=== PATIENT | male | born 1965 | race Asian ===

== ENCOUNTER 2016-08-23 11:41 | Emergency (ER) | payer OTHER ==
[2016-08-23 11:46] VITALS: BP 105/62; PULSE 87; TEMP 98.1; BMI 22.0
[2016-08-23] MEDS ORDERED: IBUPROFEN 600 MG TABLET (FP) PO ONE ×2 (12:10→12:16)
--- NOTE | 2016-08-23 13:21 | PDOC ---
History of Present Illness - General Chief Complaint: Sore Throat Stated Complaint: FEVER Time Seen by Provider: 08/23/16 11:52 History Source: Patient Exam Limitations: No Limitations - History of Present Illness Initial Comments: 08/23/16 13:19 CHIEF COMPLAINT: HISTORY OF PRESENT ILLNESS: REVIEW OF SYSTEMS: GENERAL/CONSTITUTIONAL: No fever or chills. No weakness. No weight change. HEAD, EYES, EARS, NOSE AND THROAT: No change in vision. No ear pain or discharge. No sore throat. CARDIOVASCULAR: No chest pain or palpitations. RESPIRATORY: No cough, wheezing, or shortness of breath. GASTROINTESTINAL: No nausea, vomiting, diarrhea or constipation. GENITOURINARY: No dysuria, frequency, or change in urination. MUSCULOSKELETAL: No joint or muscle swelling or pain. No neck or back pain. SKIN: No rash or easy bruising. NEUROLOGIC: No headache, vertigo, loss of consciousness, or loss of sensation. PSYCHIATRIC: No depression or anxiety. ENDOCRINE: No increased thirst. No abnormal weight change. HEMATOLOGIC/LYMPHATIC: No anemia, easy bleeding, or history of blood clots. ALLERGIC/IMMUNOLOGIC: No hives or skin allergy. No latex allergy. PHYSICAL EXAM: GENERAL: The patient is awake, alert, and fully oriented, in no acute distress. HEAD: Normal with no signs of trauma. ENT: Pupils equal, round and reactive to light, extraocular movements intact, sclera anicteric, conjunctiva clear. Neck supple. LUNGS: Clear to auscultation bilaterally. Normal excursion. No respiratory distress or use of accessory muscles. CV: RRR, S1/S2, no MRG. Cap refill < 2 sec. ABDOMEN: Soft, non-distended, non-tender. EXTREMITIES: Normal range of motion, no edema. NEUROLOGICAL: Normal speech, normal gait. CN II-XII grossly intact. PSYCH: Normal mood, normal affect. SKIN: Warm, dry, normal turgor, no rashes or lesions noted. Past History - Past Medical History Allergies/Adverse Reactions: Allergies Allergy/AdvReac Type Severity Reaction Status Date / Time Penicillins Allergy Verified 08/23/16 11:43 Home Medications: Ambulatory Orders NK [No Known Home Medication] 08/23/16 Asthma: Yes Hypercholesterolemia: Yes - Surgical History Abdominal Surgery: Yes (hernia,rectum fistula) - Psycho/Social/Smoking Cessation Hx Anxiety: No Suicidal Ideation: No Smoking History: Never smoked Have you smoked in the past 12 months: No Information on smoking cessation initiated: No Hx Alcohol Use: No Drug/Substance Use Hx: No *Physical Exam - Vital Signs Last Vital Signs Temp Pulse Resp BP Pulse Ox 98.1 F 87 18 105/62 100 08/23/16 11:43 08/23/16 11:43 08/23/16 11:43 08/23/16 11:43 08/23/16 11:43 ED Treatment Course - ADDITIONAL ORDERS Additional order review: 08/23/16 12:10 Group A Strep Rapid Antigen - Final Throat - RADIOLOGY Radiology Studies Ordered: Category Date Time Status CHEST PA & LAT [RAD] Stat Radiology 08/23/16 12:10 Completed - Medications Given in the ED: ED Medications Discontinued Medications Generic Name Dose Route Start Last Admin Trade Name Freq PRN Reason Stop Dose Admin Ibuprofen 600 mg 08/23/16 12:10 08/23/16 12:19 Motrin - PO 08/23/16 12:11 600 mg ONCE ONE Administration Medical Decision Making - Medical Decision Making 08/23/16 13:20 A/P: *DC/Admit/Observation/Transfer Diagnosis at time of Disposition: Pharyngitis Qualifiers: Pharyngitis/tonsillitis etiology: unspecified etiology Qualified Code(s): J02.9 - Acute pharyngitis, unspecified - Discharge Dispostion Disposition: HOME Condition at time of disposition: Stable Admit: No - Referrals Referrals: Kirstin Núñez MD [Primary Care Provider] - Call tomorrow - Patient Instructions Printed Discharge Instructions: DI for Pharyngitis/Tonsillopharyngitis -- Adult Additional Instructions: -Rest and stay well-hydrated -Take ibuprofen and azithromycin as prescribed -Follow up with Dr. Núñez this week -Return here for persistent fevers or any other concerning symptoms - Post Discharge Activity Work/School Note: Back to Work
== END 2016-08-23 13:32 | disposition home or self-care (01) ==
LOC: JERFT 11:41
DX: J02.9 Acute pharyngitis, unspecified (principal)
CPT/HCPCS: 71020-TC; 87070; 87430; 99281-25

== ENCOUNTER 2017-01-21 01:29 | Emergency (ER) | payer OTHER ==
[2017-01-21] MEDS ORDERED: MECLIZINE HCL 25 MG TABLET (FP) PO STA (01:36)
--- NOTE | 2017-01-21 01:37 | PDOC ---
History of Present Illness - General History Source: Patient <Bryan Hawkins - Last Filed: 01/21/17 02:23> - General Exam Limitations: No Limitations - History of Present Illness Initial Comments: 01/21/17 02:33 Patient is a 51 year old male with a significant past medical history of HTN, who presents to the ED with complaints of sore throat that began 2 days ago. Patient reports sore throat began in the morning suddenly 2 days ago. He reports experiencing intermittent non productive cough secondary to sore throat. Patient states the only sick contact is his father, but states he has abdominal pain, not a sore throat. Denies chest pain, SOB. Denies nausea, vomiting. Denies fevers, chills. Denies any out of state travel. Denies any other symptoms. Allergies: Penicillins Social history: No smoking. No alcohol. No illicit drugs. Surgical history: hernia,rectal fistula PMD: Dr. Kirstin Núñez <Luis Eduardo Fragoso - Last Filed: 01/21/17 02:33> - General Stated Complaint: SORE THROAT Time Seen by Provider: 01/21/17 01:33 Past History - Past Medical History Asthma: Yes Hypercholesterolemia: Yes - Surgical History Abdominal Surgery: Yes (hernia,rectum fistula) - Suicide/Smoking/Psychosocial Hx Smoking History: Never smoked Have you smoked in the past 12 months: No Hx Alcohol Use: No Drug/Substance Use Hx: No <Tawana Hawkinsan - Last Filed: 01/21/17 02:23> <Luis Eduardo Fragoso - Last Filed: 01/21/17 02:33> - Past Medical History Allergies/Adverse Reactions: Allergies Allergy/AdvReac Type Severity Reaction Status Date / Time Penicillins Allergy Verified 08/23/16 11:43 Home Medications: Ambulatory Orders Azithromycin [Zithromax Tri-Garret (3 DAYS) -] 500 mg PO DAILY #3 tablet 08/23/16 Ibuprofen [Motrin -] 600 mg PO QID #15 tablet 01/21/17 Meclizine HCl 25 mg PO TID #30 tablet 01/21/17 Review of Systems - Review of Systems Able to Perform ROS?: Yes Comments:: 01/21/17 02:33 CONSTITUTIONAL: Absent: fever, no chills, no fatigue EYES: Absent: visual changes ENT: +Sore throat. Absent: ear pain, CARDIOVASCULAR: Absent: chest pain, no palpitations RESPIRATORY: Absent: cough, no SOB GI: Absent: abdominal pain, no nausea, no vomiting, no constipation, no diarrhea GENITOURINARY: Absent: dysuria, no frequency, no hematuria MUSCULOSKELETAL: Absent: back pain, no arthralgia, no myalgia SKIN: Absent: rash All Other Systems: Reviewed and Negative <Luis Eduardo Fragoso - Last Filed: 01/21/17 02:33> *Physical Exam - Vital Signs Last Vital Signs Temp Pulse Resp BP Pulse Ox 99.6 F 72 18 127/83 97 01/21/17 01:30 01/21/17 01:30 01/21/17 01:30 01/21/17 01:30 01/21/17 01:30 - Physical Exam Comments: 01/21/17 02:33 GENERAL: Well-appearing, well-nourished. No apparent distress. HEENT: +Minimal erythema in the posterior pharynx Normocephalic, atraumatic. EOM intact. CARDIOVASCULAR: Normal S1, S2. Regular rate and rhythm. PULMONARY: Clear to auscultation bilaterally. ABDOMEN: Soft, non-distended, non-tender. EXTREMITIES: Normal ROM in all four extremities. No gross deformities. SKIN: Warm, dry. No rash NEUROLOGICAL: No focal neurological deficits. <Luis Eduardo Fragoso - Last Filed: 01/21/17 02:33> ED Treatment Course - ADDITIONAL ORDERS Additional order review: 01/21/17 01:42 Group A Strep Rapid Antigen - Final Throat - Medications Given in the ED: ED Medications Discontinued Medications Generic Name Dose Route Start Last Admin Trade Name Bernyq PRN Reason Stop Dose Admin Ibuprofen 600 mg 01/21/17 02:12 01/21/17 02:25 Motrin - PO 01/21/17 02:13 600 mg ONCE STA Administration Meclizine HCl 25 mg 01/21/17 01:36 01/21/17 02:01 Antivert - PO 01/21/17 01:37 25 mg ONCE STA Administration <Luis Eduardo Fragoso - Last Filed: 01/21/17 02:33> *DC/Admit/Observation/Transfer - Discharge Dispostion Admit: No <Bryan Hawkins - Last Filed: 01/21/17 02:23> - Attestations Scribe Attestion: 01/21/17 02:33 Documentation prepared by Luis Eduardo Fragoso, acting as medical record librarians teacher for Bryan Hawkins MD/DO. <Luis Eduardo Fragoso - Last Filed: 01/21/17 02:33> Diagnosis at time of Disposition: Sore throat - Discharge Dispostion Disposition: HOME Condition at time of disposition: Stable - Prescriptions Prescriptions: Ibuprofen [Motrin -] 600 mg PO QID #15 tablet Meclizine HCl 25 mg PO TID #30 tablet - Referrals Referrals: Kirstin Núñez MD [Primary Care Provider] - - Patient Instructions Printed Discharge Instructions: Sore Throat Additional Instructions: take medication as directed. follow up with your doctor for further evaluation. - Post Discharge Activity
[2017-01-21] MEDS ORDERED: MECLIZINE HCL 25 MG TABLET (FP) ONE (01:58)
[2017-01-21] MEDS ORDERED: IBUPROFEN 600 MG TABLET (FP) PO STA (02:12)
[2017-01-21 02:16] VITALS: BP 127/83; PULSE 72; TEMP 99.6; BMI 24.6
[2017-01-21] MEDS ORDERED: IBUPROFEN 600 MG TABLET (FP) PO ONE (02:24)
--- NOTE | 2017-01-23 12:51 | PDOC ---
Patient Follow-up (Call Back) - Post ED Follow - Up Condition at time of discharge: Stable Disposition at time of original discharge: HOME Reason for Call Back: Abnwl. Microbiology (Called and spoke to patient secondary to throat culture final report streptococcal group F. 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 Patient otherwise states feeling the same.)
== END 2017-01-21 02:46 | disposition home or self-care (01) ==
LOC: JER 01:29
DX: J02.9 Acute pharyngitis, unspecified (principal); E78.00 Pure hypercholesterolemia, unspecified; J45.909 Unspecified asthma, uncomplicated
CPT/HCPCS: 87070; 87077; 87430; 99281-25